=== PATIENT | male | born 1965 | race Two or more races ===

== ENCOUNTER → 2019-06-30 07:50 | Outpatient (CLI) | payer OTHER | END | disposition home or self-care (01) | LOC: LAB 07:50 | DX: E11.9 Type 2 diabetes mellitus without complications (principal); E78.00 Pure hypercholesterolemia, unspecified; I10 Essential (primary) hypertension; Z03.89 Encounter for observation for other suspected diseases and conditions ruled out; I24.8 Other forms of acute ischemic heart disease; R07.89 Other chest pain ==

== ENCOUNTER 2019-07-09 09:42 | Outpatient (CLI) | payer OTHER | END 2019-07-09 09:45 | disposition home or self-care (01) | LOC: TOM 09:42 | DX: K40.91 Unilateral inguinal hernia, without obstruction or gangrene, recurrent (principal) ==

== ENCOUNTER 2019-07-27 07:59 | Outpatient (CLI) | payer OTHER | END 2019-07-27 09:30 | disposition home or self-care (01) | LOC: NUCLEAR 07:59 | DX: I20.9 Angina pectoris, unspecified (principal) | CPT/HCPCS: 78452; 93017; A9500 ==

== ENCOUNTER 2020-01-02 11:33 | Emergency (ER) | payer OTHER ==
[~2020-01-02] VITALS: Ht 180.3 cm; Wt 83.5 kg
[2020-01-02] MEDS ORDERED: CLARITIN10 M1 (11:48)
[2020-01-02] MEDS ORDERED: DESCOVY 200-251 EACH (11:48)
[2020-01-02] MEDS ORDERED: EDURANT25 MG (11:57)
[2020-01-02] MEDS ORDERED: INTELENCE100 MG (11:57)
[2020-01-02] MEDS ORDERED: ULTRACET PO (15:14)
== END 2020-01-02 15:29 | disposition home or self-care (01) ==
LOC: ER 11:33
DX: B20 Human immunodeficiency virus [HIV] disease (principal); J06.9 Acute upper respiratory infection, unspecified; Z03.818 Encounter for observation for suspected exposure to other biological agents ruled out

== ENCOUNTER 2022-05-21 10:24 | Emergency (ER) | payer OTHER ==
[~2022-05-21] VITALS: Ht 180.3 cm; Wt 88.5 kg
[~2022-05-21 10:24] MED LIST: CLARITIN10 M1; DESCOVY 200-251 EACH; EDURANT25 MG; INTELENCE100 MG; ULTRACET PO
[2022-05-21] MEDS ORDERED: LEXAPRO5 MG PO (10:51)
[2022-05-21] MEDS ORDERED: CLONAZEPAM0.25 MG PO (10:52)
== END 2022-05-21 13:06 | disposition home or self-care (01) ==
LOC: ER 10:24
DX: U07.1 COVID-19 (principal)

== ENCOUNTER 2022-07-21 09:38 | Emergency (ER) | payer OTHER ==
[~2022-07-21] VITALS: Ht 170.2 cm; Wt 83.9 kg
[~2022-07-21 09:38] MED LIST changes: +CLONAZEPAM0.25 MG PO; +LEXAPRO5 MG PO
[2022-07-21] MEDS ORDERED: MILLIPRED DP5 M1 PO (09:51)
[2022-07-21] MEDS ORDERED: PROAIR RESPICL90 MCG IH (09:51)
[2022-07-21] MEDS ORDERED: ZITHROMAX TRI-500 MG PO (13:21)
[2022-07-21] MEDS ORDERED: TUSSI PRES-B L480 ML PO (13:21)
== END 2022-07-21 13:41 | disposition home or self-care (01) ==
LOC: ER 09:38
DX: B34.9 Viral infection, unspecified (principal); Z20.822 Contact with and (suspected) exposure to COVID-19

== ENCOUNTER 2023-01-03 13:22 | Outpatient (CLI) | payer OTHER ==
[~2023-01-03 13:22] MED LIST changes: +MILLIPRED DP5 M1 PO; +PROAIR RESPICL90 MCG IH; +TUSSI PRES-B L480 ML PO; +ZITHROMAX TRI-500 MG PO
== END 2023-01-03 13:24 | disposition home or self-care (01) ==
LOC: NUCLEAR 13:22
PROVIDERS: ATTEND Internal Medicine Cardiovascular Disease
DX: M81.0 Age-related osteoporosis without current pathological fracture (principal)

== ENCOUNTER 2023-06-09 15:45 | Outpatient (CLI) | payer OTHER ==
[2023-06-10] MEDS ORDERED: TAMS0.4C PO (21:09)
== END 2023-06-09 15:54 | disposition home or self-care (01) ==
LOC: RAD 15:45
PROVIDERS: ATTEND Internal Medicine Cardiovascular Disease
DX: M54.40 Lumbago with sciatica, unspecified side (principal)

== ENCOUNTER 2023-06-10 16:13 | Emergency (ER) | payer OTHER ==
[~2023-06-10] VITALS: Ht 180.3 cm; Wt 97.5 kg
[2023-06-10 18:47] LABS: HEMATOCRIT 44.5 % (39.0-48.0); HEMOGLOBIN 15.1 g/dL (13-16.00); MEAN CELL VOLUME 91.7 fL (80.0-100.00); MEAN CORPUSCULAR HGB CONC 33.8 g/dl (32.0-36.0); PLATELET COUNT 266 K/uL (150-450); RED BLOOD COUNT 4.85 M/uL (4.00-6.00); RED CELL DISTRIBUTION WIDTH 13.8 % (11.5-14.5)
[2023-06-10 19:05] LABS: INR 1.07; PROTHROMBIN TIME 11.2 SECONDS (9.0-11.5)
[2023-06-10 19:06] LABS: PH,URINE 6.5 (5.0-8.0); URINE APPEARANCE Clear; URINE BILIRRUBIN Negative (NEGATIVE); URINE BLOOD Negative; URINE COLOR Yellow; URINE GLUCOSE Negative (NEGATIVE); URINE LEUKOCYTE Negative; URINE NITRATE Negative; URINE PROTEIN Negative (NEGATIVE); URINE UROBILINOGEN 0.2 E.U./dl
[2023-06-10 19:07] LABS: CALCIUM 8.7 mg/dL (8.5-10.1); CREATININE SERUM 1.04 mg/dL (0.70-1.30); GFR 73.87; POTASSIUM 3.64 mEq/L (3.5-5.1)
[2023-06-10 19:10] LABS: URINE RBC 4.3 uL (0.0-20.8)
[2023-06-10 19:18] LABS: URINE BACTERIA 0 uL (0.0-1933); URINE EPITHELIAL CELLS 0.6 uL (0.0-38.8); URINE WBC 1.6 uL (0.0-23.2)
[2023-06-10] MEDS ORDERED: TAMS0.4C PO (21:09)
== END 2023-06-10 21:39 | disposition home or self-care (01) ==
LOC: ER 16:13
PROVIDERS: General Practice
DX: R10.9 Unspecified abdominal pain (principal); B20 Human immunodeficiency virus [HIV] disease; Z88.6 Allergy status to analgesic agent; B34.9 Viral infection, unspecified

== ENCOUNTER 2023-06-28 10:46 | Outpatient (CLI) | payer OTHER ==
[~2023-06-28 10:46] MED LIST changes: +TAMS0.4C PO
== END 2023-06-28 10:59 | disposition home or self-care (01) ==
LOC: RAD 10:46
DX: M54.41 Lumbago with sciatica, right side (principal); M54.42 Lumbago with sciatica, left side; M99.01 Segmental and somatic dysfunction of cervical region; M99.03 Segmental and somatic dysfunction of lumbar region; M99.02 Segmental and somatic dysfunction of thoracic region
CPT/HCPCS: 72148

== ENCOUNTER 2023-09-08 23:50 | Emergency (ER) | payer OTHER ==
[~2023-09-08] VITALS: Ht 180.3 cm; Wt 97.5 kg
[2023-09-09] MEDS ORDERED: ISENTRESS400 MG (00:02)
[2023-09-09] MEDS ORDERED: MINOCYCLINE ER45 MG (00:03)
[2023-09-09] MEDS ORDERED: CLONAZEPAM2 M1 (00:03)
[2023-09-09 02:04] LABS: HEMOGLOBIN 15.6 g/dL (13-16.00); MEAN CORPUSCULAR HEMOGLOBIN 32.7 pg (27.00-32.0); MEAN CORPUSCULAR HGB CONC 35.5 g/dl (32.0-36.0); PLATELET COUNT 244 K/uL (150-450); RED BLOOD COUNT 4.78 M/uL (4.00-6.00); RED CELL DISTRIBUTION WIDTH 13.9 % (11.5-14.5)
[2023-09-09 02:26] LABS: CALCIUM 8.6 mg/dL (8.5-10.1); CREATININE SERUM 0.91 mg/dL (0.70-1.30); GFR 86.18; POTASSIUM 3.54 mEq/L (3.5-5.1)
[2023-09-09 02:28] LABS: URINE APPEARANCE Clear; URINE BILIRRUBIN Negative (NEGATIVE); URINE BLOOD Negative; URINE COLOR Yellow; URINE GLUCOSE Negative (NEGATIVE); URINE LEUKOCYTE Negative; URINE NITRATE Negative; URINE PROTEIN Negative (NEGATIVE); URINE UROBILINOGEN 0.2 E.U./dl
[2023-09-09 02:35] LABS: URINE EPITHELIAL CELLS 0.9 uL (0.0-38.8); URINE RBC 0.1 uL (0.0-20.8); URINE WBC 1.2 uL (0.0-23.2)
[2023-09-09] MEDS ORDERED: ANTIVERT25 M2 PO (03:31)
== END 2023-09-09 03:58 | disposition home or self-care (01) ==
LOC: ER 23:51
PROVIDERS: General Practice
DX: R42 Dizziness and giddiness (principal); R53.81 Other malaise; Z88.6 Allergy status to analgesic agent; B20 Human immunodeficiency virus [HIV] disease

== ENCOUNTER 2023-09-11 11:22 | Emergency (ER) | payer OTHER ==
[~2023-09-11] VITALS: Ht 180.3 cm; Wt 95.3 kg
[~2023-09-11 11:22] MED LIST changes: +ANTIVERT25 M2 PO; +CLONAZEPAM2 M1; +ISENTRESS400 MG; +MINOCYCLINE ER45 MG
[2023-09-11] MEDS ORDERED: MECLIZINE HCL25 M1 (14:03)
[2023-09-11 15:53] LABS: HEMATOCRIT 46.7 % (39.0-48.0); HEMOGLOBIN 16.5 g/dL (13-16.00); MEAN CELL VOLUME 92.2 fL (80.0-100.00); MEAN CORPUSCULAR HEMOGLOBIN 32.5 pg (27.00-32.0); MEAN CORPUSCULAR HGB CONC 35.3 g/dl (32.0-36.0); PLATELET COUNT 241 K/uL (150-450); RED BLOOD COUNT 5.07 M/uL (4.00-6.00); RED CELL DISTRIBUTION WIDTH 13.9 % (11.5-14.5)
[2023-09-11 16:31] LABS: URINE APPEARANCE Clear; URINE BILIRRUBIN Negative (NEGATIVE); URINE BLOOD Negative; URINE COLOR Yellow; URINE GLUCOSE Negative (NEGATIVE); URINE LEUKOCYTE Negative; URINE NITRATE Negative; URINE PROTEIN Negative (NEGATIVE); URINE UROBILINOGEN 0.2 E.U./dl
[2023-09-11 16:37] LABS: URINE BACTERIA 0 uL (0.0-1933); URINE EPITHELIAL CELLS 1.2 uL (0.0-38.8); URINE RBC 1.5 uL (0.0-20.8); URINE WBC 1.2 uL (0.0-23.2)
[2023-09-11 18:13] LABS: ALBUMIN 4.4 gm/dL (3.4-5.0); BILIRUBIN TOTAL 0.67 mg/dL (0.3-1.2); BILIRUBIN,CONJUGATED 0.14 mg/dL (0.0-0.2); BILIRUBIN,UNCONJUGATED 0.53 mg/dL (0.0-0.6); CALCIUM 8.3 mg/dL (8.5-10.1); CREATININE SERUM 1.06 mg/dL (0.70-1.30); GFR 72.27; POTASSIUM 3.74 mEq/L (3.5-5.1); TOTAL PROTEIN 7.9 gm/dL (6.4-8.2)
== END 2023-09-11 21:08 | disposition home or self-care (01) ==
LOC: ER 11:22
PROVIDERS: General Practice
DX: K52.89 Other specified noninfective gastroenteritis and colitis (principal); E86.0 Dehydration; Z88.6 Allergy status to analgesic agent; B20 Human immunodeficiency virus [HIV] disease